=== PATIENT | female | born 1955 | race Caucasian/White ===

== ENCOUNTER 2016-08-27 11:27 | Day surgery (SDC) | payer BC ==
[2016-08-23 13:34] LABS: HEMATOCRIT 36.3 % (36.0-48.0); HEMOGLOBIN 11.3 g/dL (12.0-16.0)
[2016-08-23 13:51] LABS: CALCIUM, SERUM 9.7 MG/DL (8.5-10.4); CHLORIDE, SERUM 105 MMOL/L (96-112); CO2 (CARBON DIOXIDE) 29 MMOL/L (24-34); CREATININE 1.09 MG/DL (0.55-1.02); GFR AFRICAN AMERICAN 64 ML/MIN (>=60); GFR NON AFRICAN AMERICAN 56 ML/MIN (>=60); GLUCOSE, SERUM 104 MG/DL (60-99); SODIUM, SERUM 143 MMOL/L (135-148)
[2016-08-23 13:52] LABS: BUN (BLOOD UREA NITROGEN) 18 MG/DL (6-23)
--- NOTE | ~2016-08-27 | OP ---
Record Of Operation [facility] [address] [place]. [address] NAME: KAYLYN SEGOVIA : 57 STATUS : REG [facility]#: [id number] AGE: 60 ADM/REG DATE : 08/27/16 MR#: [id number] REPORT SERV DATE: 08/27/16 DICTATED BY: ANDREW ROSARIO III DATE: 08/27/16 REPORT STATUS : Draft TRANSCRIBED BY: MODL DATE: 08/27/16 DATE OF PROCEDURE: 08/27/2016 PREOPERATIVE DIAGNOSIS: Bladder tumor. 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 PROCEDURES: Transurethral resection of bladder tumor, small. SURGEON: Andrew Rosario MD ANESTHESIA: General. SPECIMEN: Bladder tumor. BLOOD LOSS: Minimal. DRAINS: None. INDICATION: Ms. Segovia is a 60-year-old white female who is found to have a papillary bladder tumor during office cystoscopy. Consent is obtained for transurethral resection. DESCRIPTION OF PROCEDURE: After consent was obtained, the patient was identified. She was taken to the OR and put to sleep. She was positioned in the low lithotomy position and prepped and draped in usual fashion. The 26-Occitan resectoscope sheath was inserted using the obturator and the resectoscope was assembled. The bladder was inspected. 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 The papillary tumor was loosely adherent to the left wall overlying the left transmural ureter. The loop was then used to scrape this off and the area of the attachment was then cauterized. Hemostasis was present. The bladder was drained. The scope removed. The patient was awakened and taken to recovery in stable condition. PH/MODL Andrew Rosario III, M.D. / [id number] CC: Wili Cooper III, M.D.
[~2016-08-27 11:27] MED LIST: ASAB PO; CYMBALTA30 PO; DYAZIDE1 CAP PO; EZFE 200200 MG PO; LEVOTHYROXIN50 MCG PO; LIPITOR40 PO; LORTAB10 PO; MTX2.5 PO; MULTIPLE VIT PO; NEXIUM40 PO; NITROQUICK0.4 MG SL; NORV5 PO; PHILLIPS COLON HEALT PO; REQUIP5 PO; SEPTRA DS1 TAB PO; VITAMIN C100 M1 PO
[2016-12-17] MEDS ORDERED: SEPTRA DS1 TAB PO (10:29)
[2016-12-17] MEDS ORDERED: MICRO-K10 MEQ PO (11:03)
== END 2016-08-27 19:09 | disposition home or self-care (01) ==
LOC: SDC 11:27
PROVIDERS: Urology
PROC: 0TBB8ZZ Excision of Bladder, Via Natural or Artificial Opening Endoscopic (ICD-10-PCS; principal; 2016-08-27 12:45)
DX: C67.9 Malignant neoplasm of bladder, unspecified (principal); G25.81 Restless legs syndrome; I11.0 Hypertensive heart disease with heart failure; I50.9 Heart failure, unspecified; M19.90 Unspecified osteoarthritis, unspecified site; E78.00 Pure hypercholesterolemia, unspecified; M79.7 Fibromyalgia; E03.9 Hypothyroidism, unspecified; E66.9 Obesity, unspecified; Z68.41 Body mass index [BMI] 40.0-44.9, adult; Z88.1 Allergy status to other antibiotic agents; Z88.8 Allergy status to other drugs, medicaments and biological substances; Z79.82 Long term (current) use of aspirin; Z79.899 Other long term (current) drug therapy; Z90.49 Acquired absence of other specified parts of digestive tract; Z90.89 Acquired absence of other organs; Z96.652 Presence of left artificial knee joint; Z98.890 Other specified postprocedural states; Z98.51 Tubal ligation status
CPT/HCPCS: 36415; 80048; 85014; 85018; 88307; 93005; J2405; J2710; J3010